=== PATIENT | female | born 1985 | race Caucasian/White ===

== ENCOUNTER 2019-03-30 06:43 | Emergency (ER) | payer OTHER, MEDICAID ==
[~2019-03-30] VITALS: Ht 162.6 cm; Wt 61.2 kg
[~2019-03-30 06:43] MED LIST: AMOXICILLIN 50500 MG PO; BACTRIM DS TAB1 EACH PO; BIRTH CONTROL; FLONASE 0.05%50 MCG NASAL; LORTAB 7.5/5001 TA1 PO; MACROBID 100 M100 M1 PO
[2019-03-30] MEDS ORDERED: PRENATAL PO (06:53)
[2019-03-30] MEDS ORDERED: CORTISPORIN OTI10 M2 OTIC (07:11)
[2019-03-30] MEDS ORDERED: AMOXICILLIN500 M1 PO (07:11)
[2019-03-30 07:26] VITALS: BP 107/59
== END 2019-03-30 07:26 | disposition home or self-care (01) ==
LOC: M.ERS 06:43
DX: O26.892 Other specified pregnancy related conditions, second trimester (principal); H60.91 Unspecified otitis externa, right ear; H66.91 Otitis media, unspecified, right ear; Z3A.23 23 weeks gestation of pregnancy; F17.210 Nicotine dependence, cigarettes, uncomplicated

== ENCOUNTER 2020-04-17 20:44 | Emergency (ER) | payer OTHER ==
[~2020-04-17] VITALS: Ht 162.6 cm; Wt 54.4 kg
[~2020-04-17 20:44] MED LIST changes: +AMOXICILLIN500 M1 PO; +CORTISPORIN OTI10 M2 OTIC; +PRENATAL PO
[2020-04-17 21:07] LABS: URINE BILIRUBIN NEGATIVE (Negative); URINE BLOOD 3+ (Negative); URINE CLARITY CLOUDY; URINE COLOR YELLOW; URINE GLUCOSE-RANDOM NEGATIVE (Negative); URINE KETONES NEGATIVE (Negative); URINE LEUKOCYTES-REFLEX 1+ (Negative); URINE PROTEIN 1+ (Negative); URINE SPECIFIC GRAVITY >= 1.030 (1.005-1.030); URINE UROBILINOGEN 0.2 E.U./dl (0.2-1.0)
[2020-04-17 21:12] LABS: URINE NITRITE-REFLEX POSITIVE (Negative)
[2020-04-17 21:16] LABS: BACTERIA-REFLEX >30 Many /HPF (None Seen); MUCUS 0-3 Light strn/LPF (None Seen); SQUAMOUS 0-3 Few /LPF (0-3); WBC CLUMPS Few (None Seen)
[2020-04-17 21:18] LABS: CRYSTALS None Seen /LPF (None Seen); HYALINE CASTS 0-3 Few /LPF (None Seen)
[2020-04-17] MEDS ORDERED: PYRIDIUM200 MG PO (21:33)
[2020-04-17] MEDS ORDERED: BACTRIM DS TAB1 EACH PO (21:33)
[2020-04-17 21:41] VITALS: BP 113/63
== END 2020-04-17 21:41 | disposition home or self-care (01) ==
LOC: M.ERS 20:44
PROVIDERS: Emergency Medicine
DX: N39.0 Urinary tract infection, site not specified (principal); F17.210 Nicotine dependence, cigarettes, uncomplicated